=== PATIENT | female | born 2000 | race Hispanic/Latino ===

== ENCOUNTER 2022-07-25 20:37 | Emergency (ER) | payer OTHER | END 2022-07-25 21:27 | disposition home or self-care (01) | LOC: ERS 20:37 | DX: R11.2 Nausea with vomiting, unspecified (principal) | CPT/HCPCS: 99281 ==

== ENCOUNTER 2022-09-25 20:38 | Emergency (ER) | payer OTHER ==
[2022-09-26] MEDS ORDERED: HYDROcodone/Acetaminophen 10/325 mg Tablet ONE (03:47)
[2022-09-26] MEDS ORDERED: Ketorolac Tromethamine 30 MG/ML VIAL ONE (03:47)
== END 2022-09-26 03:30 | disposition home or self-care (01) ==
LOC: ERS 20:38
DX: M54.50 Low back pain, unspecified (principal)
CPT/HCPCS: 96372; 99283; J1885

== ENCOUNTER 2022-10-01 18:16 | Emergency (ER) | payer OTHER ==
[2022-10-01] MEDS ORDERED: Ketorolac Tromethamine 30 MG/ML VIAL ONE (19:58)
== END 2022-10-01 20:12 | disposition home or self-care (01) ==
LOC: ERS 18:16
DX: S39.012A Strain of muscle, fascia and tendon of lower back, initial encounter (principal); X50.1XXA Overexertion from prolonged static or awkward postures, initial encounter
CPT/HCPCS: 96372; 99283; J1885